=== PATIENT | female | born 1975 ===

== ENCOUNTER 2021-12-24 08:13 | Outpatient (CLI) | payer OTHER, SELFPAY ==
--- NOTE | 2022-01-03 01:08 | WPDSLEEPSTUD ---
Sleep Study Date of Study: 12/24/21 Ordering Provider: Ayden Carey APRN Interpreting Physician: Tasha Lopez DO Sleep Study Type: Split Polysomnogram Height: 1.65 m Weight: 135.624 kg Body Mass Index: 49.7 Neck Circumference (inches): 16 Powers: 19 Reason for Sleep Study Unrefreshing sleep and daytime hypersomnia Sleep History The patient is a 46-year-old female with hypertension, hyperlipidemia and type 2 diabetes /had a sleep study ordered by the pulmonary group due to unrefreshing sleep. The patient occasionally awakens from sleep short of breath. She rarely awakens at night with heartburn, belching or cough. She frequently snores and is occasionally loud enough that others complain. She rarely has trouble sleeping when she has a cold. She occasionally wakes up gasping for air throughout the night. She occasionally has breathing problems at night observed by herself or others. She frequently sweats excessively at night. She frequently has heart palpitations or irregular heartbeat during the night. She constantly falls asleep during the day. She occasionally falls asleep while driving. She frequently has loss of muscle tone when extremely emotional. She constantly has trouble at school or work due to sleepiness. She frequently feels unable to move when waking up or falling asleep. She frequently experiences vivid dream like seen upon awakening or falling asleep. She occasionally has nightmares. She constantly has thoughts racing through her mind. She frequently feels sad or depressed. She constantly has anxiety. She constantly notices parts of her body jerk. She constantly kicks during the night. She constantly experiences crawling and aching feelings in her legs as well as leg pain during the night. She constantly grinds her teeth during sleep and constantly awakens with morning jaw pain. She is constantly bothered by pain during the day and constantly awakened by pain during the night. She constantly wakes up feeling stiff in the morning. She occasionally wakes up with sore or achy muscles. She constantly wakes up with pain in the neck, spine and other joints. She did not list her typical bedtime. She states that it takes 3-4 hours to fall asleep. She wakes up 4 times throughout the night for unknown reasons. It takes her over an hour to fall back asleep. She wakes up at 5:00 a.m. on both weekdays and weekends. She will stay in bed for 1-2 hours after waking up in the morning. She currently lives with her . She does not consume any caffeinated beverages within 2 hours of bedtime. She does not engage in physical exercise before bedtime. She will watch television before falling asleep. She will take naps in the afternoon or the evening but they are not refreshing. She consumes 1 cup of caffeinated beverage per day. She denies tobacco, alcohol and recreational drug use. [facility] Past Medical History Medical History Allergic rhinitis Bronchitis Essential hypertension History of COVID-2019 Hyperlipidemia Type 2 diabetes mellitus Surgical History Surgical History History of appendectomy Family History Family History Mother Diabetes mellitus Brain tumor Sibling Tumor Father Hypertension Social History Social History Smoking status: Never smoker Additional smoking assessment comments: Hookah socially with family Alcohol intake: never Substance use: never Medications Home Medications Medication Instructions Recorded Confirmed Type albuterol sulfate 90 mcg/actuation 1 puff INHALATION Q4H PRN 12/09/21 12/10/21 History aerosol inhaler amlodipine 10 mg tablet 10 mg PO DAILY 12/09/21 12/10/21 History atorvastatin 20 mg tablet 2
[2022-01-04 11:14] VITALS: BMI 49.7
== END 2021-12-25 06:23 | disposition home or self-care (01) ==
LOC: ANHCSM 08:14
PROVIDERS: PCP Internal Medicine; Visit Provider Nurse Practitioner Family
DX: G47.33 Obstructive sleep apnea (adult) (pediatric) (principal)
CPT/HCPCS: 95810; 95811